=== PATIENT | female | born 1985 | race Caucasian/White ===

== ENCOUNTER 2019-05-10 13:13 | Inpatient (IN) | payer OTHER ==
[2019-05-10 15:48] VITALS: BMI 22.4
--- NOTE | 2019-05-10 16:31 | HP ---
COWS - Scale Resting Pulse: 2= [place] 101-120 Sweatin=Flushed/Facial Moisture Restless Observation: 1= Difficult to Sit Still Pupil Size: 1= Pupils >than Normal Bone or Joint Aches: 2= Severe Diffuse Aches Runny Nose/ Eye Tearin= Runny Nose/Eyes GI Upset > 30mins: 3= Vomiting/Diarrhea Tremor Observation: 2= Slight Tremor Visible Yawning Observation: 1= 1-2x During Session Anxiety or Irritability: 2=Irritable/Anxious Goose Flesh Skin: 3=Piloerection COWS Score: 21 CIWA Score Nausea/Vomitin Muscle Tremors: 3 Anxiety: 3 Agitation: 2 Paroxysmal Sweats: 2 Orientation: 1-Uncertain about Date Tacttile Disturbances: 1-Very Mild Itch/Numbness Auditory Disturbances: 1-Very Mild Visual Disturbances: 2-Mild Sensitivity Headache: 2-Mild CIWA-Ar Total Score: 22 - Admission Criteria OASAS Guidelines: Admission for Medically Managed Detox: Requires at least one of the followin. CIWA greater than 12 2. Seizures within the past 24 hours 3. Delirium tremens within the past 24 hours 4. Hallucinations within the past 24 hours 5. Acute intervention needed for co occurring medical disorder 6. Acute intervention needed for co occurring psychiatric disorder 7. Severe withdrawal that cannot be handled at a lower level of care (continued vomiting, continued diarrhea, abnormal vital signs) requiring intravenous medication and/or fluids 8. Admission ROS [facility] Chief Complaint: Withdrawal symptoms Allergies/Adverse Reactions: Allergies Allergy/AdvReac Type Severity Reaction Status Date / Time No Known Allergies Allergy Verified 05/10/19 15:33 History of Present Illness: 33 y.o. 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 She reports she last completed detox at [facility] 1 month ago. She reports she is also abusing crystal meth and alcohol. Longest period of illicit drug abstinence has been 10 months and reports she relapsed in 2017. Exam Limitations: No Limitations - Ebola screening Have you traveled outside of the country in the last 21 days: No Have you had contact with anyone from an Ebola affected area: No Do you have a fever: No - Review of Systems Constitutional: Chills, Loss of Appetite, Unintentional Wgt. Loss EENT: reports: Blurred Vision, Double Vision, Tearing, Nose Congestion, Dental Problems Respiratory: reports: Shortness of Breath Cardiac: reports: No Symptoms Reported GI: reports: Diarrhea, Nausea, Vomiting, Abdominal cramping : reports: Dysuria Musculoskeletal: reports: Back Pain, Muscle Weakness, Neck Pain Integumentary: reports: No Symptoms Reported Neuro: reports: Headache, Numbness, Seizure (Last seizure was in 2009; reports it was due to Xanax withdrawal), Tingling, Tremors Endocrine: reports: No Symptoms Reported Hematology: reports: No Symptoms Reported Psychiatric: reports: Anxious, Depressed Other Systems: Reviewed and Negative Patient History - Patient Medical History Hx Anemia: No Hx Asthma: No Hx Chronic Obstructive Pulmonary Disease (COPD): Yes Hx Cancer: No Hx Cardiac Disorders: No Hx Congestive Heart Failure: No Hx Hypertension: No Hx Hypercholesterolemia: No Hx Pacemaker: No HX Cerebrovascular Accident: No Hx Seizures: Yes (Last was in 2009-benoz induced. ) Hx Dementia: No Hx Diabetes: No Hx Gastrointestinal Disorders: Yes Hx Liver Disease: No Hx Genitourinary Disorders: No Hx Sexually Transmitted Disorders: Yes (HSV II ) Hx Renal Disease (ESRD): No Hx Thyroid Disease: No Hx Human Immunodeficiency Virus (HIV): No Hx Hepatitis C: Yes (Not treated ) Hx Depression: Yes Hx Suicide Attempt: No Hx Bipolar Disorder: No Hx Schizophrenia: No Other Medical History: Anxiety - Patient Surgical History Past Surgical History: Yes Hx Section: Yes Anesthesia Reaction: No - PPD History Previous Implant?: Yes Documented Results: Negative w/o proof PPD to be Administered?: Yes - Reproductive History Patient is a Female of Child Bearing Age (11 -55 yrs old): Yes Last Menstrual Period: 04/28/19 Patient : No - Smoking Cessation Smoking history: Current every day smoker Have you smoked in the past 12 months: Yes Aproximately how many cigarettes per day: 20 Initiated information on smoking cessation: Yes 'Breaking Loose' booklet given: 05/10/19 - Substance & Tx. History Hx Alcohol Use: No Hx Substance Use: Yes Substance Use Type: Heroin, Tranquilizers Hx Substance Use Treatment: Yes - Substances abused Alprazolam (Xanax) Other (specify): 2mg Substance route: Inhalation Frequency: Daily Amount used: 10 sticks Age of first use: 16 Date of last use: 05/09/19 Heroin Substance route: Injection Frequency: Daily Amount used: 20 bags Age of first use: 24 Date of last use: 05/09/19 Crystal meth Other (specify): smoking Substance route: Injection Frequency: 3-6 times per week Amount used: 1 gram Age of first use: 26 Date of last use: 05/09/19 Alcohol Substance route: Oral Frequency: 3-6 times per week Amount used: 4 shots of vodka Age of first use: 13 Date of last use: 05/09/19 Family Disease History - Family Disease History Family Disease History: Diabetes: Grandparent, Heart Disease: Grandparent Admission Physical Exam [facility] - Vital Signs Vital Signs: Vital Signs - 24 hr 05/10/19 15:33 Temperature 98.1 F Pulse Rate 106 H Respiratory 16 Rate Blood Pressure 136/88 - Physical General Appearance: Yes: Tremorous, Irritable, Sweating, Anxious HEENTM: Yes: Hearing grossly Normal, Normocephalic, Normal Voice, Rhinorrhea Respiratory: Yes: No Respiratory Distress, No Accessory Muscle Use, Wheezing Neck: Yes: Within Normal Limits Breast: Yes: Breast Exam Deferred Cardiology: Yes: Regular Rhythm, Tachycardia Abdominal: Yes: Normal Bowel Sounds, Non Tender, Flat, Soft Genitourinary: Yes: Dysuria Back: Yes: Normal Inspection Musculoskeletal: Yes: Back pain, Joint Stiffness Extremities: Yes: Normal Inspection, Normal Range of Motion, Non-Tender Neurological: Yes: Alert, Normal Mood/Affect, Normal Response, Numbness Integumentary: Yes: Normal Color, Dry, Warm, Track Anthony Lymphatic: Yes: Within Normal Limits - Diagnostic (1) Uncomplicated opioid dependence Current Visit: Yes Status: Chronic (2) Sedative, hypnotic or anxiolytic dependence, uncomplicated Current Visit: Yes Status: Chronic (3) Drug-induced seizure Current Visit: Yes Status: Acute (4) COPD (chronic obstructive pulmonary disease) Current Visit: Yes Status: Chronic (5) HCV (hepatitis C virus) Current Visit: Yes Status: Chronic (6) Tinea pedis Current Visit: Yes Status: Acute (7) GERD (gastroesophageal reflux disease) Current Visit: Yes Status: Chronic (8) HSV-2 seropositive Current Visit: Yes Status: Acute (9) Neuropathy Current Visit: Yes Status: Chronic Cleared for Admission [facility] - Detox or Rehab [facility] Level of Care: Medically Managed Detox Regimen/Protocol: Methadone/Valium Breathalyzer - Breathalyzer Breathalyzer: 0 Urine Drug Screen - Test Device Lot number: [id number] Expiration date: 01/22/21 - Control Is test valid?: Yes - Results Drug screen NEGATIVE: Yes Urine drug screen results: IESHA-Cocaine, MET-Methamphetamine, AMP-Amphetamines, FEN-Fentanyl, MOP-Opiates, OXY-Oxycodone, MTD-Methadone, BZO-Benzodiazepines Inpatient Rehab Admission - Rehab Decision to Admit Inpatient rehab admission?: No
[2019-05-10] MEDS ORDERED: NICOTINE POLACRILEX 2 MG GUM BUC PRN (16:44)
[2019-05-10] MEDS ORDERED: MAGNESIUM HYDROX 2400MG/30ML ORAL SUSPENSION 30 ML CUP PO PRN (16:44)
[2019-05-10] MEDS ORDERED: ONDANSETRON *ODT* 4 MG TABLET SL PRN (16:44)
[2019-05-10] MEDS ORDERED: DICYCLOMINE HCL 10 MG CAPSULE PO PRN (16:44)
[2019-05-10] MEDS ORDERED: BISMUTH SUBSALICYLATE 524 MG/30 ML UD PO PRN (16:44)
[2019-05-10] MEDS ORDERED: MAGNESIUM CITRATE 300 ML BOTTLE PO PRN (16:44)
[2019-05-10] MEDS ORDERED: ACETAMINOPHEN 325 MG TABLET (FP) PO PRN ×2 (16:44)
[2019-05-10] MEDS ORDERED: MENTHOL/PHENOL 1 EACH UD MM PRN (16:44)
[2019-05-10] MEDS ORDERED: MELATONIN 5 MG TABLETS PO PRN (16:44)
[2019-05-10] MEDS ORDERED: NALOXONE HCL 0.4 MG/ML VIAL IM PRN (16:44)
[2019-05-10] MEDS ORDERED: hydrOXYzine PAMOATE 50 MG CAPSULE (FP) PO PRN (16:44)
[2019-05-10] MEDS ORDERED: cloNIDine HCL 0.1 MG TABLET PO PRN (16:44)
[2019-05-10] MEDS ORDERED: ALBUTEROL SO4 2.5/IPRATROPIUM 0.5 INH SOL 3 ML VIAL.NEB. NEB PRN (16:52)
[2019-05-10] MEDS ORDERED: ALBUTEROL SO4 8 GM HFA INHALER IH PRN (16:52)
[2019-05-10] MEDS ORDERED: METHADONE HCL 10 MG TABLET (FOR DETOX USE ONLY) PO ONE (17:15)
[2019-05-10] MEDS ORDERED: diazePAM 5 MG TABLET PO ONE (17:15)
[2019-05-10] MEDS: THIAMINE HCL 100 MG TABLET (FP) PO SCH (22:24)
[2019-05-10] MEDS: TOLNAFTATE 1% CREAM 15 GM TUBE TP SCH (22:24)
[2019-05-10] MEDS: GABAPENTIN 400 MG CAPSULE (FP) PO SCH (22:24)
[2019-05-10] MEDS: diazePAM 5 MG TABLET PO SCH (22:24)
[2019-05-10] MEDS: IBUPROFEN 400 MG TABLET (FP) PO PRN (22:28)
[2019-05-10] MEDS: traZODone HCL 50 MG TABLET (FP) PO PRN (22:28)
[2019-05-11] MEDS: GABAPENTIN 400 MG CAPSULE (FP) PO SCH ×3 (07:35→23:47)
[2019-05-11] MEDS: diazePAM 5 MG TABLET PO SCH ×3 (07:36→23:47)
[2019-05-11] MEDS ORDERED: METHADONE HCL 5 MG TABLET (FOR DETOX USE ONLY) ONE (09:06)
[2019-05-11] MEDS ORDERED: METHADONE HCL 10 MG TABLET (FOR DETOX USE ONLY) ONE (09:06)
[2019-05-11] MEDS: PANTOPRAZOLE 20 MG TABLET (FP) PO SCH (09:10)
[2019-05-11] MEDS: diazePAM 5 MG TABLET PO PRN ×2 (09:10→17:00)
[2019-05-11] MEDS: NICOTINE 21 MG/24 HOURS TOPICAL PATCH TD SCH (09:14)
[2019-05-11] MEDS: TOLNAFTATE 1% CREAM 15 GM TUBE TP SCH ×2 (09:58→23:47)
[2019-05-11] MEDS: PRENATAL VITAMINS W/ FOLIC ACID TABLET (FP) PO SCH (09:58)
[2019-05-11] MEDS ORDERED: METHADONE (DETOX) 20 MG, METHADONE (DETOX) 5 MG PO ONE (10:00)
--- NOTE | 2019-05-11 10:25 | EKG ---
Test Reason : Blood Pressure : / mmHG Vent. Rate : 094 BPM Atrial Rate : 094 BPM P-R Int : 136 ms QRS Dur : 074 ms QT Int : 382 ms P-R-T Axes : 066 054 041 degrees QTc Int : 477 ms NORMAL SINUS RHYTHM NORMAL ECG NO PREVIOUS ECGS AVAILABLE Confirmed by MD Ron, Otis ([id number]) on 05/11/2019 10:25:05 AM Referred By: Confirmed By:Otis Velasquez MD
--- NOTE | 2019-05-11 10:59 | PN ---
[facility] CIWA - CIWA Score Nausea/Vomitin-Mild Nausea/No Vomiting Muscle Tremors: 4-Moderate,w/Arms Extend Anxiety: 3 Agitation: 4-Moderately Restless Paroxysmal Sweats: 2 Orientation: 1-Uncertain about Date Tacttile Disturbances: 1-Very Mild Itch/Numbness Auditory Disturbances: 1-Very Mild Visual Disturbances: 0-None Headache: 1-Very Mild CIWA-Ar Total Score: 18 BHS COWS - Scale Resting Pulse: 2= [place] 101-120 Sweatin= Chills/Flushing Restless Observation: 0= Sits Still Pupil Size: 0= Normal to Room Light Bone or Joint Aches: 2= Severe Diffuse Aches Runny Nose/ Eye Tearin= Runny Nose/Eyes GI Upset > 30mins: 2= Nausea/Diarrhea Tremor Observation of Outstretched Hands: 2= Slight Tremor Visible Yawning Observation: 1= 1-2x During Session Anxiety or Irritability: 2=Irritable/Anxious Goose Flesh Skin: 3=Piloerection COWS Score: 17 BHS Progress Note (SOAP) Subjective: 33 years old female 1st patient [facility] admission admitted on 05/10/19 for alcohol benzo and opiate withdrawal sx management doing well with valium and methadone detox regimen ambulating on hallway feeling tired prefers to resting on bed bmi 22.5 ensure supplement Objective: 05/11/19 10:58 Vital Signs Temperature 97.5 F L 05/11/19 09:16 Pulse Rate 112 H 05/11/19 09:16 Respiratory Rate 18 05/11/19 09:16 Blood Pressure 104/71 05/11/19 09:16 O2 Sat by Pulse Oximetry (%) 05/11/19 10:58 lab pending Assessment: 05/11/19 10:59 albohol benzo opiate withdrawal sx Plan: continue valium and methadone detox regimen
[2019-05-11 12:00] LABS: HEMATOCRIT 40.4 % (32.4-45.2); HEMOGLOBIN 13.2 GM/dL (10.7-15.3); MCH 28.7 pg (25.7-33.7); MCHC 32.6 g/dl (32.0-36.0); PLATELET COUNT 350 K/MM3 (134-434); RDW 14.7 % (11.6-15.6); WHITE BLOOD COUNT 10.2 K/mm3 (4.0-10.0)
[2019-05-11 12:14] LABS: ALBUMIN 3.8 g/dl (3.4-5.0); BILIRUBIN,TOTAL 0.7 mg/dL (0.2-1); BLOOD UREA NITROGEN 21.8 mg/dL (7-18); CALCIUM 9.4 mg/dL (8.5-10.1); POTASSIUM 4.4 mmol/L (3.5-5.1); TOT PROT 7.5 g/dl (6.4-8.2)
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
[2019-05-11] MEDS: METHOCARBAMOL 500 MG TABLET PO PRN (17:00)
[2019-05-11] MEDS: IBUPROFEN 400 MG TABLET (FP) PO PRN (17:00)
[2019-05-11] MEDS: THIAMINE HCL 100 MG TABLET (FP) PO SCH (23:47)
[2019-05-12] MEDS: GABAPENTIN 400 MG CAPSULE (FP) PO SCH ×3 (05:41→22:41)
[2019-05-12] MEDS: diazePAM 5 MG TABLET PO SCH ×2 (05:41→18:14)
[2019-05-12] MEDS: METHOCARBAMOL 500 MG TABLET PO PRN ×2 (08:48→18:14)
[2019-05-12] MEDS: diazePAM 5 MG TABLET PO PRN ×3 (08:49→22:41)
[2019-05-12] MEDS: IBUPROFEN 400 MG TABLET (FP) PO PRN ×2 (08:55→18:14)
--- NOTE | 2019-05-12 09:25 | PN ---
S CIWA - CIWA Score Nausea/Vomitin Muscle Tremors: 2 Anxiety: 2 Agitation: 2 Paroxysmal Sweats: No Perspiration Orientation: 0-Oriented Tacttile Disturbances: 1-Very Mild Itch/Numbness Auditory Disturbances: 0-None Visual Disturbances: 0-None Headache: 2-Mild CIWA-Ar Total Score: 11 BHS COWS - Scale Resting Pulse: 0= [place] 80 or Below Sweatin= No chills or Flushing Restless Observation: 1= Difficult to Sit Still Pupil Size: 1= Pupils >than Normal Bone or Joint Aches: 2= Severe Diffuse Aches Runny Nose/ Eye Tearin= Runny Nose/Eyes GI Upset > 30mins: 2= Nausea/Diarrhea Tremor Observation of Outstretched Hands: 2= Slight Tremor Visible Yawning Observation: 0= None Anxiety or Irritability: 2=Irritable/Anxious Goose Flesh Skin: 0=Smooth Skin COWS Score: 12 BHS Progress Note (SOAP) Subjective: alert,irritable,anxious,interrupted sleep,tremor,pain in the body and back Objective: 05/12/19 09:22 Vital Signs Temperature 97.6 F 05/12/19 09:08 Pulse Rate 96 H 05/12/19 09:08 Respiratory Rate 18 05/12/19 09:08 Blood Pressure 117/79 05/12/19 09:08 O2 Sat by Pulse Oximetry (%) Laboratory Last Values WBC 10.2 K/mm3 (4.0-10.0) H 05/11/19 08:20 RBC 4.60 M/mm3 (3.60-5.2) 05/11/19 08:20 Hgb 13.2 GM/dL (10.7-15.3) 05/11/19 08:20 Hct 40.4 % (32.4-45.2) 05/11/19 08:20 MCV 88.0 fl (80-96) 05/11/19 08:20 MCH 28.7 pg (25.7-33.7) 05/11/19 08:20 MCHC 32.6 g/dl (32.0-36.0) 05/11/19 08:20 RDW 14.7 % (11.6-15.6) 05/11/19 08:20 Plt Count 350 K/MM3 (134-434) 05/11/19 08:20 MPV 9.0 fl (7.5-11.1) 05/11/19 08:20 Sodium 138 mmol/L (136-145) 05/11/19 08:20 Potassium 4.4 mmol/L (3.5-5.1) 05/11/19 08:20 Chloride 100 mmol/L (98-107) 05/11/19 08:20 Carbon Dioxide 30 mmol/L (21-32) 05/11/19 08:20 Anion Gap 8 MMOL/L (8-16) 05/11/19 08:20 BUN 21.8 mg/dL (7-18) H 05/11/19 08:20 Creatinine 1.0 mg/dL (0.55-1.3) 05/11/19 08:20 Est GFR (CKD-EPI)AfAm 85.72 05/11/19 08:20 Est GFR (CKD-EPI)NonAf 73.96 05/11/19 08:20 Random Glucose 78 mg/dL (74-106) 05/11/19 08:20 Calcium 9.4 mg/dL (8.5-10.1) 05/11/19 08:20 Total Bilirubin 0.7 mg/dL (0.2-1) 05/11/19 08:20 AST 28 U/L (15-37) 05/11/19 08:20 ALT 28 U/L (13-61) 05/11/19 08:20 Alkaline Phosphatase 66 U/L (45-117) 05/11/19 08:20 Total Protein 7.5 g/dl (6.4-8.2) 05/11/19 08:20 Albumin 3.8 g/dl (3.4-5.0) 05/11/19 08:20 Assessment: 05/12/19 09:23 withdrawal symptom Plan: continue detox methadone and lirium regimen cbc wbc 10.200,bun 21.8,probably due to dehydration,encourage oral fluid
[2019-05-12] MEDS ORDERED: METHADONE HCL 10 MG TABLET (FOR DETOX USE ONLY) PO ONE (10:00)
[2019-05-12] MEDS: PRENATAL VITAMINS W/ FOLIC ACID TABLET (FP) PO SCH (10:42)
[2019-05-12] MEDS: PANTOPRAZOLE 20 MG TABLET (FP) PO SCH (10:42)
[2019-05-12] MEDS: NICOTINE 21 MG/24 HOURS TOPICAL PATCH TD SCH (10:42)
[2019-05-12] MEDS: TOLNAFTATE 1% CREAM 15 GM TUBE TP SCH ×2 (13:24→22:30)
[2019-05-12] MEDS: MAG HYDROX/AL HYDROX/SIMETH 30 ML UNIT-DOSE CUP PO PRN (15:07)
[2019-05-12 17:22] LABS: EPI CELLS >36 /HPF (0-5/HPF); HYALINE CASTS 56 /lpf (0-8); PH,URINE 5.5 (5.0-8.0); URINE APPEARANCE TURBID; URINE BACTERIA 286.6 /hpf (NEGATIVE); URINE BILIRUBIN NEGATIVE (NEGATIVE); URINE COLOR DK YELLOW; URINE GLUCOSE (UA) NEGATIVE (NEGATIVE); URINE KETONE 1+ (NEGATIVE); URINE LEUK ESTERASE TRACE (NEGATIVE); URINE NITRITE NEGATIVE (NEGATIVE); URINE PROTEIN TRACE (NEGATIVE); URINE RBC 2 /hpf (0-4); URINE WBC 38 /hpf (0-5)
[2019-05-12 17:47] LABS: URINE CRYSTALS CALCIUM OXALATE /hpf
[2019-05-12] MEDS: traZODone HCL 50 MG TABLET (FP) PO PRN (22:41)
[2019-05-12] MEDS: THIAMINE HCL 100 MG TABLET (FP) PO SCH (22:41)
[2019-05-13] MEDS: GABAPENTIN 400 MG CAPSULE (FP) PO SCH ×3 (05:31→22:37)
[2019-05-13] MEDS ORDERED: diazePAM 5 MG TABLET PO ONE (06:00)
[2019-05-13] MEDS ORDERED: METHADONE HCL 5 MG TABLET (FOR DETOX USE ONLY) ONE (09:23)
[2019-05-13] MEDS ORDERED: METHADONE HCL 10 MG TABLET (FOR DETOX USE ONLY) ONE (09:23)
[2019-05-13] MEDS ORDERED: METHADONE (DETOX) 10 MG, METHADONE (DETOX) 5 MG PO ONE (10:00)
[2019-05-13] MEDS: PANTOPRAZOLE 20 MG TABLET (FP) PO SCH (11:00)
[2019-05-13] MEDS: PRENATAL VITAMINS W/ FOLIC ACID TABLET (FP) PO SCH (11:00)
[2019-05-13] MEDS: TOLNAFTATE 1% CREAM 15 GM TUBE TP SCH ×2 (11:02→22:41)
[2019-05-13] MEDS: NICOTINE 21 MG/24 HOURS TOPICAL PATCH TD SCH (11:28)
[2019-05-13] MEDS: NITROFURANTOIN MACROCRYSTAL 50 MG CAPSULE (FP) PO SCH ×2 (11:28→17:51)
[2019-05-13] MEDS: diazePAM 5 MG TABLET PO PRN (11:31)
[2019-05-13] MEDS: METHOCARBAMOL 500 MG TABLET PO PRN ×2 (11:31→17:56)
[2019-05-13] MEDS: MAG HYDROX/AL HYDROX/SIMETH 30 ML UNIT-DOSE CUP PO PRN (11:47)
--- NOTE | 2019-05-13 13:07 | PN ---
[facility] CIWA - CIWA Score Nausea/Vomitin-No Nausea/No Vomiting Muscle Tremors: 3 Anxiety: 2 Agitation: 2 Paroxysmal Sweats: 2 Orientation: 0-Oriented Tacttile Disturbances: 0-None Auditory Disturbances: 0-None Visual Disturbances: 0-None Headache: 0-None Present CIWA-Ar Total Score: 9 BHS COWS - Scale Resting Pulse: 0= [place] 80 or Below Sweatin= Chills/Flushing Restless Observation: 1= Difficult to Sit Still Pupil Size: 0= Normal to Room Light Bone or Joint Aches: 1= Mild Discomfort Runny Nose/ Eye Tearin= Nasal Congestion GI Upset > 30mins: 0= None Tremor Observation of Outstretched Hands: 1= Tremor [place], Not Seen Yawning Observation: 1= 1-2x During Session Anxiety or Irritability: 1=Feels Anxious/Irritable Goose Flesh Skin: 0=Smooth Skin COWS Score: 7 S Progress Note (SOAP) Subjective: i think i have a UTI sweats body aches Objective: 05/13/19 13:06 Vital Signs Temperature 97.7 F 05/13/19 09:12 Pulse Rate 72 05/13/19 09:12 Respiratory Rate 16 05/13/19 09:12 Blood Pressure 102/53 L 05/13/19 09:12 O2 Sat by Pulse Oximetry (%) Laboratory Tests 05/11/19 05/11/19 05/11/19 08:20 08:20 08:20 WBC 10.2 H RBC 4.60 Hgb 13.2 Hct 40.4 MCV 88.0 MCH 28.7 MCHC 32.6 RDW 14.7 Plt Count 350 MPV 9.0 Sodium 138 Potassium 4.4 Chloride 100 Carbon Dioxide 30 Anion Gap 8 BUN 21.8 H Creatinine 1.0 Est GFR (CKD-EPI)AfAm 85.72 Est GFR (CKD-EPI)NonAf 73.96 Random Glucose 78 Calcium 9.4 Total Bilirubin 0.7 AST 28 ALT 28 Alkaline Phosphatase 66 Total Protein 7.5 Albumin 3.8 Urine Color Urine Appearance Urine pH Ur Specific Mallory Urine Protein Urine Glucose (UA) Urine Ketones Urine Blood Urine Nitrite Urine Bilirubin Urine Urobilinogen Ur Leukocyte Esterase Urine WBC (Auto) Urine RBC (Auto) Urine Casts (Auto) U Pathogenic Cast Auto U Epithel Cells (Auto) Urine Crystals (Auto) Urine Bacteria (Auto) RPR Titer Nonreactive 05/12/19 13:40 WBC RBC Hgb Hct MCV MCH MCHC RDW Plt Count MPV Sodium Potassium Chloride Carbon Dioxide Anion Gap BUN Creatinine Est GFR (CKD-EPI)AfAm Est GFR (CKD-EPI)NonAf Random Glucose Calcium Total Bilirubin AST ALT Alkaline Phosphatase Total Protein Albumin Urine Color Dk yellow Urine Appearance Turbid Urine pH 5.5 Ur Specific Mallory 1.039 H Urine Protein Trace Urine Glucose (UA) Negative Urine Ketones 1+ H Urine Blood Negative Urine Nitrite Negative Urine Bilirubin Negative Urine Urobilinogen 1.0 Ur Leukocyte Esterase Trace Urine WBC (Auto) 38 Urine RBC (Auto) 2 Urine Casts (Auto) 56 U Pathogenic Cast Auto None seen U Epithel Cells (Auto) >36 Urine Crystals (Auto) Calcium oxalate Urine Bacteria (Auto) 286.6 RPR Titer labs noted u/a shows a UTI aaox3 ambulating no acute distress Assessment: 05/13/19 13:06 withdrawals Plan: continue detox increase fluids macrobid 50 q6hr po x 7 days
--- NOTE | 2019-05-13 14:57 | PN ---
Psychiatric Progress Note Vital Signs: Vital Signs Period Temp Pulse Resp BP Sys/Andino Pulse Ox Last 24 Hr 96.8 F-98.1 F 72-89 16-18 101-114/53-69 Date of Session: 05/13/19 Chief Complaint:: "forget it" Current Medications: Active Medications Generic Name Dose Route Start Last Admin Trade Name Freq PRN Reason Stop Dose Admin Acetaminophen 650 mg 05/10/19 16:44 Tylenol - PO Q6H PRN PAIN LEVEL 4 - 6 Acetaminophen 650 mg 05/10/19 16:44 Tylenol - PO Q6H PRN FEVER Al Hydroxide/Mg Hydroxide 30 ml 05/10/19 16:44 05/13/19 11:47 Mylanta Oral Suspension - PO 30 ml Q6H PRN Administration DYSPEPSIA Albuterol Sulfate 2 puff 05/10/19 16:52 Ventolin Hfa Inhaler - IH Q4H PRN SHORT OF BREATH/WHEEZING Albuterol/Ipratropium 1 amp 05/10/19 16:52 Duoneb - NEB Q4H PRN SHORTNESS OF BREATH Bismuth Subsalicylate 524 mg 05/10/19 16:44 Pepto-Bismol - PO Q1H PRN DIARRHEA Diazepam 10 mg 05/10/19 16:44 05/13/19 11:31 Valium - PO 05/13/19 16:43 10 mg Q4H PRN Administration WITHDRAWAL(CONT SUBST) Dicyclomine HCl 10 mg 05/10/19 16:44 Bentyl - PO 05/16/19 16:47 Q6H PRN Abdominal Cramping Eucalyptus/Menthol/Phenol/Sorbitol 1 each 05/10/19 16:44 Cepastat Lozenge - MM 05/16/19 16:46 Q4H PRN SORE THROAT Gabapentin 800 mg 05/10/19 22:00 05/13/19 05:31 Neurontin - PO 800 mg TID LUBAN Administration Hydroxyzine Pamoate 50 mg 05/10/19 16:44 Vistaril - PO 05/16/19 16:47 Q6H PRN For Anxiety Ibuprofen 400 mg 05/10/19 16:44 05/12/19 18:14 Motrin - PO 400 mg Q6H PRN Administration PAIN LEVEL 1 - 3 Magnesium Citrate 300 ml 05/10/19 16:44 Citroma - PO Q48H PRN CONSTIPATION Magnesium Hydroxide 30 ml 05/10/19 16:44 Milk Of Magnesia - PO PRN PRN CONSTIPATION Melatonin 5 mg 05/10/19 16:44 Melatonin PO HS PRN INSOMNIA Methadone HCl 5 mg 05/15/19 06:00 Dolophine - PO 05/15/19 06:01 ONCE@0600 ONE Methadone HCl 10 mg 05/14/19 10:00 Dolophine - PO 05/14/19 10:01 ONCE ONE Methocarbamol 500 mg 05/10/19 16:44 05/13/19 11:31 Robaxin - PO 05/16/19 16:46 500 mg Q6H PRN Administration MUSCLE SPASMS Naloxone HCl 0.4 mg 05/10/19 16:44 Narcan - IM PRN PRN RESPIRATORY DEPRESSION Nicotine 21 mg 05/11/19 10:00 05/13/19 11:28 Nicoderm Patch - TD 21 mg DAILY LUBNA Administration Nicotine Polacrilex 2 mg 05/10/19 16:44 Nicorette Gum - BUC Q2H PRN NICOTINE REPLACEMENT RX Nitrofurantoin Macrocrystals 50 mg 05/13/19 12:00 05/13/19 11:28 Macrodantin - PO 05/20/19 11:59 50 mg Q6HPO LUBNA Administration Ondansetron HCl 4 mg 05/10/19 16:44 Zofran Odt - SL 05/16/19 16:47 Q12H PRN Nausea/Vomiting Pantoprazole Sodium 20 mg 05/11/19 10:00 05/13/19 11:00 Protonix - PO 20 mg DAILY LUBNA Administration Multivit/Folic Acid/Iron 1 tab 05/11/19 10:00 05/13/19 11:00 Vitamins (Sjr) - PO 1 tab DAILY LUBNA Administration Thiamine HCl 100 mg 05/10/19 22:00 05/12/19 22:41 Vitamin B1 - PO 100 mg HS LUBNA Administration Tolnaftate 1 applic 05/10/19 22:00 05/13/19 11:02 Tinactin 1% Cream - TP Not Given BID LUBNA Trazodone HCl 50 mg 05/10/19 16:44 05/12/19 22:41 Desyrel - PO 05/16/19 16:47 50 mg HS PRN Administration INSOMNIA Provider note:: [facility] approached patient for psychiatric reconsultation. Patient stated to process description writer, " its ok forget it. I dont need to see you. I don't need my prozac. I'm leaving in a few days. thank you." Psychiatric consultation refused.
[2019-05-13] MEDS: THIAMINE HCL 100 MG TABLET (FP) PO SCH (22:37)
[2019-05-13] MEDS: traZODone HCL 50 MG TABLET (FP) PO PRN (22:37)
[2019-05-14] MEDS: NITROFURANTOIN MACROCRYSTAL 50 MG CAPSULE (FP) PO SCH ×3 (00:26→11:36)
[2019-05-14] MEDS: GABAPENTIN 400 MG CAPSULE (FP) PO SCH (06:31)
[2019-05-14] MEDS: METHOCARBAMOL 500 MG TABLET PO PRN (06:31)
[2019-05-14 09:43] VITALS: BP 109/56; PULSE 74; TEMP 97.6
[2019-05-14] MEDS ORDERED: METHADONE HCL 10 MG TABLET (FOR DETOX USE ONLY) PO ONE (10:00)
[2019-05-14] MEDS: NICOTINE 21 MG/24 HOURS TOPICAL PATCH TD SCH (10:23)
[2019-05-14] MEDS: TOLNAFTATE 1% CREAM 15 GM TUBE TP SCH (10:23)
[2019-05-14] MEDS: PANTOPRAZOLE 20 MG TABLET (FP) PO SCH (10:23)
[2019-05-14] MEDS: PRENATAL VITAMINS W/ FOLIC ACID TABLET (FP) PO SCH (10:23)
--- NOTE | 2019-05-14 11:44 | PN ---
BHS COWS - Scale Resting Pulse: 0= [place] 80 or Below Sweatin= No chills or Flushing Restless Observation: 1= Difficult to Sit Still Pupil Size: 0= Normal to Room Light Bone or Joint Aches: 1= Mild Discomfort Runny Nose/ Eye Tearin= Nasal Congestion GI Upset > 30mins: 1= Stomach Cramp Tremor Observation of Outstretched Hands: 0= None Yawning Observation: 1= 1-2x During Session Anxiety or Irritability: 1=Feels Anxious/Irritable Goose Flesh Skin: 0=Smooth Skin COWS Score: 6 BHS Progress Note (SOAP) Subjective: alet,interrupted sleep Objective: 05/14/19 11:43 Vital Signs Temperature 97.6 F 05/14/19 09:42 Pulse Rate 74 05/14/19 09:42 Respiratory Rate 18 05/14/19 09:42 Blood Pressure 109/56 L 05/14/19 09:42 O2 Sat by Pulse Oximetry (%) Assessment: 05/14/19 11:43 no withdrawal symptom Plan: stable for discharge today,o [facility]
--- NOTE | 2019-05-14 11:49 | DS ---
[facility] Detox Discharge Summary Admission Date: 05/10/19 Discharge Date: 05/14/19 - History Present History: Opioid Dependence, Sedative Dependence Pertinent Past History: drug withdrawal seizure copd hepatitiis c gerd neuropathy ivdu uti - Physical Exam Results Vital Signs: Vital Signs Temperature 97.6 F 05/14/19 09:42 Pulse Rate 74 05/14/19 09:42 Respiratory Rate 18 05/14/19 09:42 Blood Pressure 109/56 L 05/14/19 09:42 O2 Sat by Pulse Oximetry (%) - Treatment Hospital Course: Detox Protocol Followed, Detoxed Safely, Responded well, Discharged Condition Good, Rehab Referral Accepted Patient has Accepted a Rehab Referral to: [place] - Medication Discharge Medications: Ambulatory Orders Fluoxetine HCl [Prozac] 40 mg PO DAILY 05/10/19 Folic Acid - 1 mg PO DAILY 05/10/19 Gabapentin 800 mg PO TID 05/10/19 traZODone HCL [Trazodone HCl] 50 mg PO HS 05/10/19 Nitrofurantoin Macrocrystal [Macrodantin -] 50 mg PO Q6HPO #28 capsule 05/14/19 Nitrofurantoin Macrocrystal [Macrodantin] 50 mg PO Q6H #28 capsule 05/14/19 - Diagnosis (1) Opioid dependence with withdrawal Current Visit: Yes Status: Acute (2) COPD (chronic obstructive pulmonary disease) Current Visit: Yes Status: Chronic (3) GERD (gastroesophageal reflux disease) Current Visit: Yes Status: Chronic (4) HCV (hepatitis C virus) Current Visit: Yes Status: Chronic (5) History of depression Current Visit: Yes Status: Chronic (6) Neuropathy Current Visit: Yes Status: Chronic (7) Nicotine dependence Current Visit: Yes Status: Chronic (8) Sedative, hypnotic or anxiolytic dependence, uncomplicated Current Visit: Yes Status: Chronic (9) UTI (urinary tract infection) Current Visit: Yes Status: Acute - AMA Did Patient Leave Against Medical Advice: No
[2019-05-15] MEDS ORDERED: METHADONE HCL 5 MG TABLET (FOR DETOX USE ONLY) PO ONE (06:00)
== END 2019-05-14 12:53 | disposition home or self-care (01) | DRG 773 ==
LOC: YASAS 13:13 → Y3N 17:09 → Y6N 05-11 16:42 → Y3N 05-11 23:49 → Y6N 05-11 23:50
PROVIDERS: ADMIT Surgery; ATTEND Surgery
PROC: HZ2ZZZZ Detoxification Services for Substance Abuse Treatment (ICD-10-PCS; principal; 2019-05-10)
DX: F10.230 Alcohol dependence with withdrawal, uncomplicated (principal); F11.23 Opioid dependence with withdrawal; F13.230 Sedative, hypnotic or anxiolytic dependence with withdrawal, uncomplicated; F15.10 Other stimulant abuse, uncomplicated; F17.210 Nicotine dependence, cigarettes, uncomplicated; F19.24 Other psychoactive substance dependence with psychoactive substance-induced mood disorder; F32.9 Major depressive disorder, single episode, unspecified; G62.9 Polyneuropathy, unspecified; J44.9 Chronic obstructive pulmonary disease, unspecified; K21.9 Gastro-esophageal reflux disease without esophagitis; N39.0 Urinary tract infection, site not specified; B35.3 Tinea pedis; A60.00 Herpesviral infection of urogenital system, unspecified; Z86.69 Personal history of other diseases of the nervous system and sense organs
CPT/HCPCS: 36415; 80053; 81003; 85027; 86593; 93005; 93010